=== PATIENT | male | born 1950 | race Caucasian/White ===

== ENCOUNTER 2016-06-15 09:07 | Emergency (ER) | payer MEDICARE ==
[~2016-06-15] VITALS: Ht 172.7 cm; Wt 77.2 kg
[2016-06-15] MEDS ORDERED: GuaiFENesin/D-METHORPHAN [SUGAR-FREE] 200-20MG/10 ML SYRUP UDCUP PO ONE (10:15)
[2016-06-15] MEDS ORDERED: ACETAMINOPHEN 325 MG TABLET PO ONE (10:15)
[2016-06-15 10:52] LABS: INFLUENZA TYPE B NEGATIVE FOR TYPE B (NEGATIVE)
[2016-06-15 11:25] VITALS: BP 150/95
== END 2016-06-15 11:28 | disposition home or self-care (01) ==
LOC: EMS 09:10
DX: J06.9 Acute upper respiratory infection, unspecified (principal); R03.0 Elevated blood-pressure reading, without diagnosis of hypertension
CPT/HCPCS: 87804; 99284

== ENCOUNTER 2018-05-20 01:43 | Emergency (ER) | payer MEDICARE ==
[~2018-05-20] VITALS: Ht 172.7 cm; Wt 81.8 kg
[2018-05-20 02:54] LABS: BASOPHILS % (AUTO) 0.3 % (0.0-2.0); EOSINOPHILS % (AUTO) 2.1 % (1.0-6.0); HEMATOCRIT 45.1 % (41-53); LYMPHOCYTES # (AUTO) 0.9 K/uL (1.0-4.8); LYMPHOCYTES % (AUTO) 18.3 % (22.0-44.0); MEAN CORPUSCULAR HGB CONC 33.3 G/dL (31.0-37.0); MEAN CORPUSCULAR VOLUME 90 fL (80-100); MONOCYTES # (AUTO) 0.7 K/uL (0.1-1.0); MONOCYTES % (AUTO) 14.5 % (2.0-9.0); NEUTROPHILS # (AUTO) 3.1 K/uL (1.8-7.7); NEUTROPHILS % (AUTO) 64.8 % (40.0-70.0); RED BLOOD CELL COUNT(AUTO) 5.01 MIL/uL (4.50-5.90)
[2018-05-20 03:04] LABS: PROTHROMBIN TIME 10.3 SEC (9.4-11.6)
[2018-05-20 03:06] LABS: ANION GAP 7 mmol/L (8-16); CALCIUM, TOTAL 9.3 mg/dL (8.8-10.5); CARBON DIOXIDE 28 mmol/L (22-29); CHLORIDE 103 mmol/L (98-107); CREATININE 1.06 mg/dL (0.60-1.30); GLOMERULAR FILTR. RATE CALC > 60 mL/min (>60); GLUCOSE,RANDOM 100 mg/dL (70-110); POTASSIUM 3.7 mmol/L (3.5-5.1); SODIUM SERUM 138 mmol/L (136-145); UREA NITROGEN, BLOOD 18 mg/dL (7-18)
[2018-05-20 03:12] LABS: ALANINE AMINOTRANSFERASE 38 U/L (12-78); ALBUMIN 3.4 g/dL (3.4-5.0); ALKALINE PHOSPHATASE 55 U/L (46-116); ASPARTATE AMINOTRANSFERASE 27 U/L (15-37); BILIRUBIN,TOTAL 0.3 mg/dL (0.1-1.0); LIPASE 204 U/L (73-393)
[2018-05-20 03:13] LABS: PLATELET COUNT (AUTO) 73 K/uL (150-450); PLATELET MORPHOLOGY COMMENT GIANT PLTS PRESENT
[2018-05-20 03:50] VITALS: BP 132/74
== END 2018-05-20 03:56 | disposition home or self-care (01) ==
LOC: EMS 01:43
DX: R10.9 Unspecified abdominal pain (principal); R11.10 Vomiting, unspecified
CPT/HCPCS: 82271; 86850; 86900; 86901